=== PATIENT | female | born 1945 | race Caucasian/White ===

== ENCOUNTER 2017-08-22 13:52 | Inpatient (IN) | payer MEDICARE ==
[~2017-08-22] VITALS: Ht 160 cm; Wt 86.7 kg
[2017-08-22] MEDS ORDERED: SODIUM CHLORIDE FLUSH 10ML SYR IVF ONE (14:30)
[2017-08-22 15:03] LABS: BASOPHILS # (AUTO) 0.08 x10^3/uL (0-0.1); BASOPHILS % (AUTO) 1 % (0-1); EOSINOPHILS # (AUTO) 0.25 x10^3/uL (0-0.4); EOSINOPHILS % (AUTO) 4 % (1-7); LYMPHOCYTES % (AUTO) 12 % (22-44); MD NO; MEAN CORPUSCULAR HEMOGLOBIN 34.9 pg (27.0-34.8); MEAN CORPUSCULAR HGB CONC 33.7 g/dL (32.4-35.8); MEAN CORPUSCULAR VOLUME 103.5 fL (80-100); MEAN PLATELET VOLUME 8.9 fL (7.4-10.4); MONOCYTES # (AUTO) 0.57 x10^3/uL (0.2-0.8); MONOCYTES % (AUTO) 8 % (2-9); NEUTROPHILS # (AUTO) 5.42 x10^3/uL (1.8-6.8); NEUTROPHILS % (AUTO) 75 % (42-75); PLATELET COUNT 238 x10^3/uL (130-400); RED BLOOD COUNT 3.78 x10^6/uL (3.82-5.3); RED CELL DISTRIBUTION WIDTH 12.4 % (9.6-15.2)
[2017-08-22 15:04] LABS: INTERNATIONAL NORMALIZED RATIO 1.02 (0.93-1.1); PROTHROMBIN TIME 10.5 Seconds (9.6-11.5)
[2017-08-22 15:08] LABS: ALANINE AMINOTRANSFERASE 18 U/L (12-78); ALBUMIN 3.3 g/dL (3.4-5.0); ANION GAP 7 mmol/L (5-15); CALCIUM 9.6 mg/dL (8.5-10.1); CHLORIDE 107 mmol/L (98-107)
[2017-08-22 15:12] LABS: ALKALINE PHOSPHATASE 82 U/L (45-117); BILIRUBIN,TOTAL 0.6 mg/dL (0.2-1.0); CREATININE 0.85 mg/dL (0.55-1.02); TOTAL PROTEIN 7.1 g/dL (6.4-8.2); TROPONIN I < 0.015 ng/mL (0.000-0.045)
[2017-08-22 17:33] LABS: MICROSCOPIC INDICATED
[2017-08-22 17:44] LABS: CULTURE INDICATED? NO
[2017-08-22] MEDS ORDERED: ONDANSETRON 2MG/ML, 2ML ONE (17:57)
[2017-08-22] MEDS ORDERED: ACETAMINOPHEN 325 MG TABLET PO PRN (18:00)
[2017-08-22] MEDS: SODIUM CHLORIDE 0.9% 1,000 ML IV SCH (18:15)
[2017-08-22] MEDS: ONDANSETRON 2MG/ML, 2ML IVPush PRN (18:17)
[2017-08-22] MEDS ORDERED: DIAZ10TA4 PO (18:20)
[2017-08-22] MEDS ORDERED: LEVE500T13 PO (18:20)
[2017-08-22] MEDS ORDERED: OXYB5TAB7 PO (18:20)
[2017-08-22] MEDS ORDERED: ATOR20TA9 PO (18:20)
[2017-08-22] MEDS ORDERED: SERT50TA5 PO (18:20)
[2017-08-22] MEDS ORDERED: BACL20TA PO (18:20)
[2017-08-22] MEDS ORDERED: CLOP75TA52 PO (18:20)
[2017-08-22] MEDS ORDERED: CARV6.252 PO (18:20)
[2017-08-22 18:46] LABS: TROPONIN I < 0.015 ng/mL (0.000-0.045)
[2017-08-22 18:50] VITALS: BP 130/66
[2017-08-22] MEDS ORDERED: POTASSIUM CHLORIDE 40 MEQ in SODIUM CHLORIDE 0.9% 500 ML IV ONE (20:30)
[2017-08-22 21:00] VITALS: BP 130/66
[2017-08-22] MEDS: ATORVASTATIN 80 MG TABLET PO SCH (21:20)
[2017-08-22] MEDS: HEPARIN 5,000 UNITS/ML, 1ML SQ SCH (21:21)
[2017-08-23 00:25] LABS: TROPONIN I < 0.015 ng/mL (0.000-0.045)
[2017-08-23 03:34] VITALS: BP 110/68
[2017-08-23 05:13] LABS: BASOPHILS # (AUTO) 0.05 x10^3/uL (0-0.1); BASOPHILS % (AUTO) 1 % (0-1); EOSINOPHILS # (AUTO) 0.19 x10^3/uL (0-0.4); EOSINOPHILS % (AUTO) 3 % (1-7); LYMPHOCYTES # (AUTO) 1.36 x10^3/uL (1-3.4); LYMPHOCYTES % (AUTO) 23 % (22-44); MD NO; MEAN CORPUSCULAR HEMOGLOBIN 34.9 pg (27.0-34.8); MEAN CORPUSCULAR HGB CONC 33.8 g/dL (32.4-35.8); MEAN CORPUSCULAR VOLUME 103.4 fL (80-100); MEAN PLATELET VOLUME 8.5 fL (7.4-10.4); MONOCYTES # (AUTO) 0.73 x10^3/uL (0.2-0.8); MONOCYTES % (AUTO) 12 % (2-9); NEUTROPHILS % (AUTO) 61 % (42-75); PLATELET COUNT 208 x10^3/uL (130-400); RED BLOOD COUNT 3.33 x10^6/uL (3.82-5.3); RED CELL DISTRIBUTION WIDTH 12.2 % (9.6-15.2)
[2017-08-23 05:28] LABS: CHOL/HDL RATIO 2.8; LDL/HDL RATIO 1.4 (0.5-3.0)
[2017-08-23] MEDS: HEPARIN 5,000 UNITS/ML, 1ML SQ SCH ×3 (05:29→20:58)
[2017-08-23] MEDS: ASPIRIN 325 MG TABLET PO SCH (05:29)
[2017-08-23] MEDS: ONDANSETRON 2MG/ML, 2ML IVPush PRN (05:43)
[2017-08-23] MEDS ORDERED: LORazepam 2 MG/ML, 1ML IVPush ONE (07:00)
[2017-08-23 08:01] VITALS: BP 114/76
[2017-08-23] MEDS: SENNA/DOCUSATE TABLET PO SCH (09:56)
[2017-08-23 13:34] VITALS: BP 120/71
[2017-08-23 18:24] VITALS: BP 113/78
[2017-08-23] MEDS: ATORVASTATIN 80 MG TABLET PO SCH (20:58)
[2017-08-23] MEDS: SODIUM CHLORIDE 0.9% 1,000 ML IV SCH (20:58)
[2017-08-24 02:00] VITALS: BP 138/83
[2017-08-24] MEDS: ASPIRIN 325 MG TABLET PO SCH (05:34)
[2017-08-24] MEDS: HEPARIN 5,000 UNITS/ML, 1ML SQ SCH ×2 (05:34→12:45)
[2017-08-24 05:48] LABS: BASOPHILS # (AUTO) 0.08 x10^3/uL (0-0.1); BASOPHILS % (AUTO) 1 % (0-1); EOSINOPHILS # (AUTO) 0.38 x10^3/uL (0-0.4); EOSINOPHILS % (AUTO) 5 % (1-7); LYMPHOCYTES # (AUTO) 1.56 x10^3/uL (1-3.4); LYMPHOCYTES % (AUTO) 22 % (22-44); MD NO; MEAN CORPUSCULAR HEMOGLOBIN 34.9 pg (27.0-34.8); MEAN CORPUSCULAR HGB CONC 33.6 g/dL (32.4-35.8); MEAN CORPUSCULAR VOLUME 103.9 fL (80-100); MEAN PLATELET VOLUME 8.6 fL (7.4-10.4); MONOCYTES # (AUTO) 0.66 x10^3/uL (0.2-0.8); MONOCYTES % (AUTO) 9 % (2-9); NEUTROPHILS # (AUTO) 4.38 x10^3/uL (1.8-6.8); NEUTROPHILS % (AUTO) 62 % (42-75); PLATELET COUNT 224 x10^3/uL (130-400); RED CELL DISTRIBUTION WIDTH 12.4 % (9.6-15.2)
[2017-08-24 07:16] VITALS: BP 151/78
[2017-08-24] MEDS: ONDANSETRON 2MG/ML, 2ML IVPush PRN (08:59)
[2017-08-24] MEDS: SENNA/DOCUSATE TABLET PO SCH (09:00)
[2017-08-24] MEDS ORDERED: ASPI-621 PO (10:44)
[2017-08-24] MEDS ORDERED: ATOR20TA9 PO (10:44)
[2017-08-24] MEDS: SODIUM CHLORIDE 0.9% 1,000 ML IV SCH (12:40)
== END 2017-08-24 14:05 | disposition home health service (06) | DRG 69 ==
LOC: ED 17:00 → EDIP 17:01 → ED 17:41 → 4EST 18:36 → DCLOUNGE 08-24 13:40
PROVIDERS: ADMIT Internal Medicine; ATTEND Internal Medicine
PROC: 0T9B70Z Drainage of Bladder with Drainage Device, Via Natural or Artificial Opening (ICD-10-PCS; principal; 2017-08-22)
DX: G45.9 Transient cerebral ischemic attack, unspecified (principal); G93.40 Encephalopathy, unspecified; I69.354 Hemiplegia and hemiparesis following cerebral infarction affecting left non-dominant side; E78.00 Pure hypercholesterolemia, unspecified; E87.6 Hypokalemia; G47.33 Obstructive sleep apnea (adult) (pediatric); I10 Essential (primary) hypertension; Z66 Do not resuscitate; Z87.81 Personal history of (healed) traumatic fracture
CPT/HCPCS: 36415; 70450; 70551; 71045; 80053; 80061; 81001; 83605; 83735; 84145; 84484; 85025; 85610; 85730; 87040; 93005; 93880; 99285; J1644; J2405; J3480; 92523-GN; J2060; J7030; J7040